=== PATIENT | male | born 1995 | race Caucasian/White ===

== ENCOUNTER 2024-03-29 17:12 | Emergency (ER) | payer OTHER ==
[~2024-03-29] VITALS: Ht 182.9 cm; Wt 78.0 kg
[2024-03-29 17:26] VITALS: TEMP 98.9
[2024-03-29] MEDS ORDERED: dexaMETHasone SOD PHOSPHATE 1 ML ONE (18:46)
[2024-03-29] MEDS: dexaMETHasone SOD PHOSPHATE 10 MG/ML VIAL MC ONE (18:50)
[2024-03-29] MEDS ORDERED: ACETAMINOPHEN ES 500 MG TABLET ONE (20:02)
[2024-03-29] MEDS: ACETAMINOPHEN ES 500 MG TABLET PO ONE (20:04)
[2024-03-29 20:33] VITALS: BP 105/75; O2SAT 100
== END 2024-03-29 20:35 | disposition home or self-care (01) ==
LOC: ER 17:12
DX: J02.9 Acute pharyngitis, unspecified (principal); B34.9 Viral infection, unspecified; J45.909 Unspecified asthma, uncomplicated; Z20.822 Contact with and (suspected) exposure to COVID-19; Z88.0 Allergy status to penicillin
CPT/HCPCS: 99284; 71045; 87426; 87804 ×2; 87070; 87880; J1100; 86403-TC